=== PATIENT | male | born 1955 | race Hispanic/Latino ===

== ENCOUNTER 2022-04-08 05:38 | Day surgery (SDC) | payer MEDICARE, OTHER ==
[2022-04-06 13:49] LABS: BASOPHILS % (AUTO) 0.6 % (0.0-5.0); EOSINOPHILS % (AUTO) 2.7 % (0.0-8.0); HEMATOCRIT 43.6 % (42-54); LYMPHOCYTES % (AUTO) 40.7 % (21.0-51.0); MEAN CORPUSCULAR HEMOGLOBIN 28.8 pg (27.0-33.0); MEAN CORPUSCULAR HGB CONC 32.8 g/dL (32.0-36.0); MEAN CORPUSCULAR VOLUME 87.9 fL (79-99); PLATELET COUNT (AUTO) 251 K/uL (130-400); RED BLOOD CELL COUNT(AUTO) 4.96 MIL/uL (4.50-6.20); RED CELL DISTRIBUTION WIDTH 12.1 % (11.0-15.5); WHITE BLOOD COUNT (AUTO) 5.1 K/uL (4.8-10.8)
[2022-04-06 13:51] VITALS: BP 158/84
[2022-04-06 13:57] LABS: CREATININE 0.9 mg/dL (0.5-1.5)
[2022-04-06 13:58] LABS: INR 1.14 (0.85-1.15); PROTHROMBIN TIME 12.3 SEC (9.6-11.6)
[2022-04-06 14:00] LABS: PARTIAL THROMBOPLASTIN TIME 27.6 SEC (26.3-35.5)
[2022-04-06 14:13] LABS: B-TYPE NATRIURETIC PEPTIDE 24 pg/mL (0-100)
[2022-04-08] VITALS (10 sets, daily range): BP systolic 111–189; BP diastolic 65–87
[~2022-04-08] VITALS: Ht 175.3 cm; Wt 76.8 kg
[~2022-04-08 05:38] MED LIST: CINN500C PO; CLOP75TA32 PO; DULA1.5P SQ; EMPA1TAB7 PO; INSU100I24 SQ; LOSA25TA41 PO; MAGN250C PO; METO-408 PO; MULT-1367 PO; RIVA2.5T PO; ROSU20TA31 PO; VITAMIN B12 PO
[2022-04-08] MEDS ORDERED: 0.9%NACL 1000ML 1,000 ML IV ONE (06:16)
[2022-04-08] MEDS ORDERED: MIDAZOLAM HCL 1 MG/ML 2ML VIAL ONE ×3 (07:08→10:47)
[2022-04-08] MEDS ORDERED: FENTANYL CITRATE PF 50 MCG/1 ML 2ML VIAL ONE ×3 (07:08→10:47)
[2022-04-08] MEDS ORDERED: NICARDIPINE 25MG INJ IV ONE (07:08)
[2022-04-08] MEDS ORDERED: NITROGLYCERIN 50MG VIAL ONE (07:08)
[2022-04-08] MEDS ORDERED: IODIXANOL 320 MG/ML 100 ML VIAL ONE (07:09)
[2022-04-08] MEDS ORDERED: HEPARIN 10,000 UNIT/10ML (1,000 UNIT/ML) VIAL ONE (07:09)
[2022-04-08] MEDS ORDERED: LIDOCAINE HCL 1% MDV 50ML VIAL ONE (07:09)
[2022-04-08] MEDS ORDERED: CLOPIDOGREL 300MG TAB ONE (08:30)
[2022-04-08] MEDS ORDERED: ASPIRIN 325MG EC TAB PO ONE (08:30)
[2022-04-08] MEDS ORDERED: NOREPINEPHRINE BITARTRATE 1 MG/1 ML ML IV ONE (10:11)
[2022-04-08] MEDS ORDERED: 0.9%NACL 1000ML 1,000 ML IV SCH (11:30)
[2022-04-08] MEDS ORDERED: GLUCAGON 1MG KIT 1 MG ML IM PRN (11:30)
[2022-04-08] MEDS ORDERED: DEXTROSE 50%-WATER 50 ML DISP.SYRIN IV PRN (11:30)
== END 2022-04-08 15:55 | disposition home or self-care (01) ==
LOC: DAH 05:38 → EDSEX 13:00 → DAH 15:55
PROVIDERS: ATTEND Internal Medicine Cardiovascular Disease
DX: I70.211 Atherosclerosis of native arteries of extremities with intermittent claudication, right leg (principal); I70.92 Chronic total occlusion of artery of the extremities; E11.51 Type 2 diabetes mellitus with diabetic peripheral angiopathy without gangrene; I10 Essential (primary) hypertension; E78.5 Hyperlipidemia, unspecified; N52.1 Erectile dysfunction due to diseases classified elsewhere; Z83.3 Family history of diabetes mellitus; Z82.49 Family history of ischemic heart disease and other diseases of the circulatory system; Z79.01 Long term (current) use of anticoagulants; Z79.82 Long term (current) use of aspirin
CPT/HCPCS: 80048; 83880; 85025; 85610; 85730; 36415; 71045; 93005; 75716; 85347 ×2; 82948 ×2; C9774; C1894 ×2; C1769 ×9; C1760; C1893; C1724; C1887; C1727 ×2; C1725 ×2; J3010 ×3; J3490 ×4; J7030; J1644 ×3; J2250 ×3; Q9967; A4215; A4222; A4221; A4663; A4216; A4606; A4223 ×3; 96360; 96361; 99156; 99157

== ENCOUNTER 2023-12-22 06:29 | Day surgery (SDC) | payer MEDICARE ==
[2023-12-20 10:52] LABS: BASOPHILS # (AUTO) 0.03 K/uL (0.00-0.20); BASOPHILS % (AUTO) 0.5 % (0.0-5.0); EOSINOPHILS # (AUTO) 0.12 K/uL (0.00-0.70); HEMATOCRIT 44.8 % (42-54); IMMATURE GRANULOCYTE ABSOLUTE 0.01 K/uL (0-1); LYMPHOCYTES # (AUTO) 1.9 K/uL (1.0-4.8); LYMPHOCYTES % (AUTO) 30.7 % (21.0-51.0); MEAN CORPUSCULAR HEMOGLOBIN 29.8 pg (27.0-33.0); MEAN CORPUSCULAR HGB CONC 33.3 g/dL (32.0-36.0); MEAN CORPUSCULAR VOLUME 89.6 fL (79-99); MONOCYTES # (AUTO) 0.5 K/uL (0.1-1.0); MONOCYTES % (AUTO) 8.5 % (3.0-13.0); NEUTROPHILS # (AUTO) 3.6 K/uL (1.8-7.7); NEUTROPHILS % (AUTO) 58.1 % (40.0-77.0); PLATELET COUNT (AUTO) 275 K/uL (130-400); RED CELL DISTRIBUTION WIDTH 12.4 % (11.0-15.5); WHITE BLOOD COUNT (AUTO) 6.1 K/uL (4.8-10.8)
--- NOTE | 2023-12-20 10:55 | EKG ---
[facility] Test Date: 2023-12-20 Test Time: 11:38:48 Pat Name: ELDA NOLAN Department: [facility] Room: Gender: M Brick Catcher: [id number] : 1955 Requested By: FAISAL OLIVARES Order Number: [id number] Reading MD: Jose Miguel Crowley Measurements Intervals [place] Rate: 78 P: -21 TN: 159 QRS: 6 QRSD: 87 T: 62 QT: 352 QTc: 401 Interpretive Statements Sinus rhythm Low voltage, extremity leads Compared to ECG 04/06/2022 13:28:05 Low QRS voltage now present Electronically Signed On 12-21-2023 19:31:40 MENAGERIE SUPERINTENDENT by Jose Miguel Crowley Please click the below link to view image of tracing.
[2023-12-20 11:00] LABS: CREATININE 0.8 mg/dL (0.5-1.3); POTASSIUM 5.2 mmol/L (3.5-5.1)
[2023-12-20 11:01] LABS: INR 1.17 (0.85-1.15); PROTHROMBIN TIME 12.5 SEC (9.6-11.6)
[2023-12-20 11:03] LABS: PARTIAL THROMBOPLASTIN TIME 28.1 SEC (26.3-35.5)
[2023-12-20 11:37] VITALS: BP 132/73; PULSE 82; RESP 18; TEMP 98.1
--- NOTE | 2023-12-20 11:53 | NUR ---
report notified lisa hale np pt on xarelto 2.5mg bid. received orders to instruct pt to hold day before procedure. pt notified
[2023-12-20 12:17] LABS: B-TYPE NATRIURETIC PEPTIDE 19 pg/mL (0-100)
--- NOTE | 2023-12-20 12:24 | HMCIMG ---
CHEST 1VW REASON: PRE OP COMPARISON: 04/06/2022 FINDINGS: Single view of the chest was obtained. Lungs are clear. Heart size is normal. There is no pulmonary vascular congestion. Mediastinum and bony thorax appear unremarkable. IMPRESSION: 1. Normal single view chest x-ray.
--- NOTE | 2023-12-21 16:44 | NUR ---
REPORT REPORTED POTASSIUM LEVEL TO DONNIE ROJAS NP. RECEIVED ORDERS TO REPEAT IN AM Addendum: 12/21/23 at 1646 by OCTAVIO PURVIS RN RN IF LEVEL STILL ELEVATED THEN STOP LOSARTAN PER DONNIE ROJAS NP
[~2023-12-22] VITALS: Ht 175.3 cm; Wt 70.9 kg
[2023-12-22] VITALS (9 sets, daily range): BP systolic 112–197; BP diastolic 60–83; PULSE 62–70; RESP 14–18; TEMP 97.3–98
[~2023-12-22 06:29] MED LIST changes: +CHOL200074 PO; +DULA0.75 SQ; -DULA1.5P SQ; -INSU100I24 SQ; +INSU300I SQ; -MAGN250C PO; +MAGN400C PO; -ROSU20TA31 PO; +ROSU20TA98 PO; +ZINC220T4 PO; +novolog SQ
[2023-12-22] MEDS: 0.9%NACL 1000ML 1,000 ML IV ONE (08:02)
[2023-12-22] MEDS ORDERED: HEParin 10,000 UNIT/10ML (1,000 UNIT/ML) VIAL ONE (09:03)
[2023-12-22] MEDS ORDERED: NITROGLYCERIN 50MG VIAL ONE (09:03)
[2023-12-22] MEDS ORDERED: HEParin-NS 1,000 UNIT/500 ML 1,000 ML IV ONE (09:03)
[2023-12-22] MEDS ORDERED: IOHEXOL 350 MG/ML 100ML INFUS..BTL IV ONE (09:03)
[2023-12-22] MEDS ORDERED: LIDOCAINE HCL 400MG/20ML VIAL ONE (09:03)
[2023-12-22] MEDS ORDERED: niCARDIpine 25MG INJ IV ONE (09:03)
[2023-12-22] MEDS ORDERED: FENTanyl CITRate PF 50 MCG/1 ML 2ML VIAL ONE (09:26)
[2023-12-22] MEDS ORDERED: MIDAZOLAM HCL 1 MG/ML 2ML VIAL ONE (09:26)
[2023-12-22] MEDS ORDERED: 0.9%NACL 1000ML 1,000 ML IV SCH (11:00)
--- NOTE | 2023-12-22 11:06 | PRN ---
PROCEDURE NOTE Indications: 1. JAIN (anginal equivalent) 2. HTN 3. HLP 4. DM2 5. PAD 6. Normal Lexiscan stress test done in May 2021 7. Normal left ventricle systolic function, LVEF 60-65% by echocardiogram done on 05/25/2021 Procedures: Left heart catheterization, coronary angiogram, right common femoral angiogram Introduction: After informed written consent was obtained, the patient was brought to the Catheterization Lab in the usual fasting state. Following sterile prep and drape, a time out was performed, then moderate sedation was administered, 1mg of Versed and 50mcg of Fentanyl, then 1% Lidocaine was infiltrated into the right femoral groin. Using a Modified Seldinger technique, a 6Fr Sheath was inserted into the right common femoral artery. While under fluoroscopic guidance, diagnostic coronary catheters were advanced over a wire into the central circulation where they were aspirated, flushed and placed to pressure monitoring, once the wire was removed. Coronary Angio: The left and right coronary arteries were engaged with appropriate catheters and angiography was performed under continuous pressure monitoring. Left Heart Catheterization: A JR4 catheter was inserted into the LV and the pressure was recorded, then the catheter was removed from the LV. Cardiac Findings: Codominant system LM: Medium caliber vessel with mild luminal irregularities. The vessel bifurca corrie into the LAD and LCX. LAD: Medium caliber vessel with diffuse 80% stenosis in the ostial, proximal, and mid LAD. The rest of the vessel has mild luminal irregularities. ROEL 3 blood flow. DIAG1: Small caliber vessel with 90% stenosis in the ostial-proximal DIAG1. DIAG2: Small caliber vessel with mild luminal irregularities. LCx: Large caliber vessel with 30% stenosis in the ostial LCx, 40% stenosis in the mid LCx, and 60% stenosis in the distal LCx. ROEL 3 blood flow. OM1: Medium caliber vessel with 80% stenosis in the proximal OM1. OM2: Medium caliber vessel with mild luminal irregularities. LPLV: Medium caliber vessel with 80-90% stenosis in the proximal LPLV and 80% stenosis in the mid LPLV. RCA: Small caliber vessel with 30% stenosis in the proximal RCA and 70% stenosis in the mid RCA. ROEL 3 blood flow. RPDA: Small caliber vessel with mild luminal irregularities. LVEDP: 7 mmHg Medications given: Versed 1mg, Fentanyl 50mcg, Nitroglycerin 200mcg Coronary Intervention: None Complications: None Conscious Sedation Monitoring: Under my direct order and supervision, medication for moderate conscious sedation was administered by the nursing staff and the patients level of consciousness and physiological status was monitored by an independent trained carmine grant. Closure of Access Site: After the case completed the sheath was pulled and a 6Fr Angioseal was deployed in the right common femoral artery without complication. Conclusion: 1. 3V+branch CAD (LAD, LCx, RCA, DIAG1, OM1, LPLV) 2. JAIN (anginal equivalent) 3. HTN 4. HLP 5. DM2 6. PAD 7. False negative Lexiscan stress test done in May of 2021 8. Normal left ventricle systolic function, LVEF 60-65% by echocardiogram done on 05/25/[address]: [address] surgery for CABG evaluation (to be done as an outpatient) 2. Continue goal directed medical therapy. 3. Please start NS at 100 mL/hr x 2 hours 4. Groin precautions 5. 4 hours of bedrest 6. No driving x 48 hours 7. No strenuous activity or heavy lifting x 2 weeks 8. Okay to discharge home once bedrest is complete and the patient's right groin access site remains soft to palpation and free of significant bleeding, b ruising, or hematoma formation. 9. Please have the patient follow up with Cardiology, Dr. Demian Matthew, 1-2 weeks after discharge. DEMIAN MATTHEW MD Dec 22, 2023 11:06
--- NOTE | 2023-12-22 14:15 | NUR ---
BOTH PT AND SPOUSE GIVEN VERBAL AND WRITTEN DISCHARGE INSTRUCTIONS. THEY WERE GIVEN CD OF DIAGRAM AND H&P. TO FOLLOW UP WITH CV SX.
== END 2023-12-22 14:35 | disposition home or self-care (01) ==
LOC: DAH 06:29
PROVIDERS: ATTEND Internal Medicine Cardiovascular Disease
DX: R06.09 Other forms of dyspnea (principal); I25.118 Atherosclerotic heart disease of native coronary artery with other forms of angina pectoris; R93.1 Abnormal findings on diagnostic imaging of heart and coronary circulation; N52.1 Erectile dysfunction due to diseases classified elsewhere; R60.0 Localized edema; I10 Essential (primary) hypertension; E11.51 Type 2 diabetes mellitus with diabetic peripheral angiopathy without gangrene; E78.5 Hyperlipidemia, unspecified; N25.1 Nephrogenic diabetes insipidus; Z82.49 Family history of ischemic heart disease and other diseases of the circulatory system; Z83.3 Family history of diabetes mellitus; Z79.01 Long term (current) use of anticoagulants; Z79.4 Long term (current) use of insulin; Z79.899 Other long term (current) drug therapy
CPT/HCPCS: 80048; 83880; 85025; 85610; 85730; 36415 ×2; 71045; 93005; 93458; 84132; 82948; C1894 ×2; C1760; J3010; J3490 ×2; J7030; J2250; J1644; Q9967; A4215; A4222; A4221; A4663; A4216; A4606; Q9965 ×2; A4223 ×3; 96360; 96361; 99156; 99157

== ENCOUNTER 2024-04-29 05:32 | Day surgery (SDC) | payer MEDICARE ==
[2024-04-25 10:00] VITALS: BP 121/68; PULSE 73; RESP 18; TEMP 97.2
[2024-04-25 10:10] LABS: INR 1.18 (0.85-1.15); PROTHROMBIN TIME 12.3 SEC (9.6-11.6)
[2024-04-29] VITALS (8 sets, daily range): BP systolic 131–150; BP diastolic 64–75; PULSE 57–78; RESP 14–15; TEMP 97.2
[~2024-04-29] VITALS: Ht 175.3 cm; Wt 68.7 kg
[~2024-04-29 05:32] MED LIST changes: +ASPI-1443 PO; +CHOL2000 PO; -CHOL200074 PO; -CLOP75TA32 PO; +ESCI-8 PO; +FERS325 PO; +INSU100I3 SQ; -MAGN400C PO; +METO-391 PO; -METO-408 PO; +MULT-1289 PO; -MULT-1367 PO; -VITAMIN B12 PO; -novolog SQ
[2024-04-29] MEDS: 0.9%NACL 1000ML 1,000 ML IV SCH (06:54)
[2024-04-29] MEDS ORDERED: LIDOCAINE HCL 400MG/20ML VIAL ONE (07:16)
[2024-04-29] MEDS ORDERED: IODIXANOL 320 MG/ML 100 ML VIAL ONE (07:17)
[2024-04-29] MEDS ORDERED: HEParin 10,000 UNIT/10ML (1,000 UNIT/ML) VIAL ONE (07:17)
[2024-04-29] MEDS ORDERED: NITROGLYCERIN 50MG VIAL ONE (07:17)
[2024-04-29] MEDS ORDERED: HEParin-NS 1,000 UNIT/500 ML 1,000 ML IV ONE (07:17)
[2024-04-29] MEDS ORDERED: FENTanyl CITRate PF 50 MCG/1 ML 2ML VIAL ONE (07:34)
[2024-04-29] MEDS ORDERED: MIDAZOLAM HCL 1 MG/ML 2ML VIAL ONE ×2 (07:34→09:10)
[2024-04-29] MEDS ORDERED: niCARDIpine 25MG INJ IV ONE (07:43)
[2024-04-29] MEDS ORDERED: cloPIDOgrel 300MG TAB ONE (08:33)
[2024-04-29] MEDS ORDERED: HEParin-NS 1,000 UNIT/500 ML 500 ML IV ONE (09:00)
[2024-04-29] MEDS ORDERED: DEXTROSE 50%-WATER 50 ML DISP.SYRIN IV PRN (10:30)
[2024-04-29] MEDS ORDERED: 0.9%NACL 1000ML 1,000 ML IV SCH (10:30)
[2024-04-29] MEDS ORDERED: GLUCAGON 1MG KIT 1 MG ML IM PRN (10:30)
--- NOTE | 2024-04-29 10:47 | PRN ---
Procedure:Peripheral Angiogram Procedure Note Procedure Note: Peripheral Angiogram Date/Time of Service: 04/29/2024 Referring Physician: Dr. Matthew Procedures Performed: Lower abdominal aortogram, peripheral angiogram with lower extremity arterial runoff, balloon angioplasty of the right dorsalis pedis artery, balloon angioplasty, and balloon lithotripsy of the right anterior tibial artery Indications for Procedure: PAD, [place] category five symptoms (right lower extremity) Nonhealing ulcer on the 1st digit of the right foot PAD s/p peripheral intervention of the right anterior tibial artery done in 2022 CAD s/p CABG Description of Procedure: [After informed consent was obtained the patient was prepped and draped in the usual sterile fashion a 6 [place]i arterial sheath with a hemostatic valve was inserted into the left common femoral artery using a modified Salinger technique on the first pass front wall puncture. A 5 [place]i Omni Flush catheter was then advanced over a soft angled Glidewire into the abdominal aorta and a abdominal aortogram with runoff was obtained. The findings are listed below. The Omni flush catheter was then advanced to the right common femoral artery and a right lower extremity arterial runoff was obtained. The findings are listed below.] Findings: Lower Abdominal aorta: patent Right common iliac artery: patent Right external iliac artery: patent Right internal iliac artery: patent Right common femoral artery: patent Right profunda artery: patent Right superficial femoral artery: patent Right popliteal artery: patent Right anterior tibial artery: Diffuse 70% stenosis in the proximal segment of the artery. 100% stenosis (GRAPPLE YARDER OPERATOR = 150mm) in the mid segments of the artery. The artery reconstitutes distally via collateral blood flow Right tibioperoneal artery: patent Right peroneal artery: patent Right posterior tibial artery: 100% stenosis (GRAPPLE YARDER OPERATOR > 240mm) in the proximal segment of the artery. The artery does not reconstitute distally Right dorsalis pedis artery: 100% stenosis in the mid segment of the artery. Right pedal arch: Incomplete, with slow single-vessel runoff supplying the anterior segment of the pedal arch. Left common iliac artery: patent Left external iliac artery: patent Left internal iliac artery: patent Left common femoral artery: patent Left profunda artery: patent Intervention: After reviewing the above-mentioned findings the decision was made to intervene on the right anterior tibial artery in the right dorsalis pedis artery. The soft angled glidewire was inserted into the Omni flush catheter was advanced in the right popliteal artery. The Omni flush catheter was then removed. The short 6 [place] arterial sheath was then exchanged for a 65 cm 6 [place]i destination arterial sheath, which was then placed in the mid right superficial femoral artery. We then administered heparin 75 units/kg x1 dose and clopidogrel 600 mg x 1 dose. We then advanced a 0.014 whisper guidewire and 0.014 cross catheter across the area stenosis and into the distal right anterior tibial artery. We then proceeded with a wire escalation technique which included a 0.014 Fielder XT, 0.014 miracle 6, 0.014 Confianza pro and 0.014 Astato 20gm. Using the last wire were able to cross the GRAPPLE YARDER OPERATOR in the right dorsalis pedis artery. The wire and quick cross catheter were then advanced anterior segment of the pedal arch. We then removed the wire injected contrast into the 0.014 quick cross catheter to ensure that we are in the true lumen. Once this was confirmed we inserted a 0.014 run-through guidewire into the quick cross catheter and advanced it into the distal segment of the pedal arch. We then removed the quick cross catheter and performed balloon angioplasty (1.5-2.0 x 210mm > 2.0 x 40mm) in the right dorsalis pedis artery and balloon angioplasty (1.0-2.0 x 210mm) and balloon lithotripsy (shockwave 3.0 x 80mm) in the proximal, mid, and distal right anterior tibial artery. The balloons were then removed and repeat angiography was performed, which revealed a widely patent right anterior tibial artery and right dorsalis pedis artery, without dissection, perforation, and brisk two-vessel runoff supplying the right foot/pedal arch. The 0.014 runthrough guidewire and 65 cm 6 [place]i arterial sheath were then removed and the arteriotomy site in the left common femoral artery was successfully closed using a six [place] Angio-Seal device. The patient tolerated the procedure well and without issue. Estimated Blood Loss: [40]mL Complications: [ None] Conclusion: 1. PAD, [place] category 5 symptoms (right lower extremity), 100% stenosis in the mid right anterior tibial artery status post successful treatment with balloon angioplasty and balloon lithotripsy and 100% stenosis in the right dorsalis pedis artery status post successful treatment with balloon angioplasty, resulting in widely patent arteries, without dissection, perforation, and brisk two-vessel runoff supplying the right foot/pedal arch. 2. Residual PAD, 100% stenosis in the proximal right posterior tibial artery, [place] does not reconstitute distally this is not amenable to percutaneous intervention. 3. Nonhealing ulcer in the 1st digit of the right foot 4. CAD s/p CABG Recommendations/Instructions: 1. Goal-directed medical therapy. 2. Continue aspirin 81 mg daily and xarelto 2.5 mg BID 3. Groin precautions 4. 4 hours of bedrest after the arterial sheaths are pulled 5. Start NS at 100 mL/hour x2 hours. 6. Okay to DC, once bed rest is complete, and the left groin is soft, free of bruising, bleeding, and or hematoma formation. 7. No driving for the next 48 hours. 8. No heavy lifting or strenuous exercise for the next two weeks. 9. Please have the patient follow up with Dr. Matthew in 1-2 weeks. 10. Continue with aggressive wound care FAISAL MATTHEW MD Apr 29, 2024 10:47
== END 2024-04-29 14:05 | disposition home or self-care (01) ==
LOC: DAH 05:32
PROVIDERS: ATTEND Internal Medicine Cardiovascular Disease
DX: E11.51 Type 2 diabetes mellitus with diabetic peripheral angiopathy without gangrene (principal); I70.211 Atherosclerosis of native arteries of extremities with intermittent claudication, right leg; E11.621 Type 2 diabetes mellitus with foot ulcer; L97.519 Non-pressure chronic ulcer of other part of right foot with unspecified severity; I70.92 Chronic total occlusion of artery of the extremities; I25.10 Atherosclerotic heart disease of native coronary artery without angina pectoris; R06.09 Other forms of dyspnea; R93.1 Abnormal findings on diagnostic imaging of heart and coronary circulation; N52.1 Erectile dysfunction due to diseases classified elsewhere; R60.0 Localized edema; F41.9 Anxiety disorder, unspecified; I10 Essential (primary) hypertension; E78.00 Pure hypercholesterolemia, unspecified; E66.9 Obesity, unspecified; Z68.21 Body mass index [BMI] 21.0-21.9, adult; Z83.3 Family history of diabetes mellitus; Z82.49 Family history of ischemic heart disease and other diseases of the circulatory system; Z79.01 Long term (current) use of anticoagulants; Z79.899 Other long term (current) drug therapy; Z98.890 Other specified postprocedural states; Z95.1 Presence of aortocoronary bypass graft; Z79.82 Long term (current) use of aspirin
CPT/HCPCS: 83880; 85610; 85730; 36415; 75630; 85347 ×2; 82948; C9772; C1887 ×2; C1725 ×5; C1894 ×2; C1769 ×7; C1760; C1893; J3010; J3490 ×3; J7030; J1644 ×3; J2250 ×2; Q9967; A4215; A4222; A4221; A4663; A4216; A4606; A4223 ×3; 75716; 96360; 96361; 99156; 99157; C1761

== ENCOUNTER 2024-10-04 06:27 | Day surgery (SDC) | payer MEDICARE ==
[2024-10-02 11:15] LABS: IMMATURE GRANULOCYTE ABSOLUTE 0.03 K/uL (0-1); NUCLEATED RED BLOOD CELLS 0.0 % (0.0-0.19); PLATELET COUNT (AUTO) 428 K/uL (130-400); RED BLOOD CELL COUNT(AUTO) 4.95 MIL/uL (4.50-6.20); RED CELL DISTRIBUTION WIDTH 12.6 % (11.0-15.5); WHITE BLOOD COUNT (AUTO) 9.6 K/uL (4.8-10.8)
[2024-10-02 11:21] VITALS: BP 122/74; PULSE 99; RESP 13; TEMP 97.7
[2024-10-02 11:27] LABS: CREATININE 1.0 mg/dL (0.5-1.3); GLOMERULAR FILTR. RATE CALC 81.0 mL/min (>90); GLUCOSE,RANDOM 115.0 mg/dL (70-105); INR 1.19 (0.85-1.15); SODIUM SERUM 139.0 mmol/L (136-145); UREA NITROGEN, BLOOD 26.0 mg/dL (7-18)
[2024-10-02 11:30] LABS: APPEARANCE,URINE CLEAR (CLEAR); GLUCOSE, URINE (UA) >=1000 mg/dL (NEGATIVE); LEUKOCYTE ESTERASE ,URINE NEGATIVE Leu/uL (NEGATIVE); NITRATE,URINE NEGATIVE (NEGATIVE); OCCULT BLOOD,URINE NEGATIVE (NEGATIVE)
[2024-10-02 11:50] LABS: ADD UA MICROSCOPIC YES
[2024-10-02 11:55] LABS: SQUAMOUS EPITHELIAL CELL,UR RARE /HPF (0-2)
--- NOTE | 2024-10-02 12:12 | EKG ---
[facility] Test Date: 2024-10-02 Test Time: 11:00:55 Pat Name: ELDA NOLAN Department: [facility] Room: Gender: Mergers And Acquisitions Manager: [id number] : 1955 Requested By: FAISAL OLIVARES Order Number: [id number] Reading MD: Jorge Brown Measurements Intervals [place] Rate: 100 P: 58 TX: 162 QRS: 1 QRSD: 85 T: 92 QT: 319 QTc: 412 Interpretive Statements Sinus tachycardia Nonspecific T abnormalities, lateral leads Compared to ECG 12/20/2023 11:38:48 T-wave abnormality now present Sinus rhythm no longer present Electronically Signed On 10-03-2024 05:15:33 CDT by Jorge Brown Please click the below link to view image of tracing.
--- NOTE | 2024-10-02 12:55 | NUR ---
verified. called lisa hale bag hanger and asked when does pt need to stop taking xarelto. as per lisa pt to hold 1 day before. pt and spouse notified.
--- NOTE | 2024-10-02 18:01 | HMCIMG ---
EXAM: XR Chest, 1 View(s). CLINICAL HISTORY: COMPARISON: None provided. FINDINGS: LUNGS: The lungs are clear. No consolidation. Negative findings. PLEURAL SPACES: No pleural effusion or pneumothorax. HEART: The heart size is normal. BONES: No acute osseous abnormality. IMPRESSION: 1. No acute findings. /[place]
[2024-10-04] VITALS (9 sets, daily range): BP systolic 117–160; BP diastolic 65–83; PULSE 73–85; RESP 13–18; TEMP 97–97.6
[~2024-10-04] VITALS: Ht 175.3 cm; Wt 73.0 kg
[~2024-10-04 06:27] MED LIST changes: +AMOX1TAB16 PO; +BRIM5DRO OD; +CARB-283 OU; -ESCI-8 PO; -FERS325 PO; -ZINC220T4 PO
[2024-10-04] MEDS: 0.9%NACL 1000ML 1,000 ML IV SCH (06:54)
[2024-10-04] MEDS ORDERED: IODIXANOL 320 MG/ML 100 ML VIAL ONE (08:29)
[2024-10-04] MEDS ORDERED: LIDOCAINE HCL 400MG/20ML VIAL ONE (08:29)
[2024-10-04] MEDS ORDERED: HEParin-NS 1,000 UNIT/500 ML 1,000 ML IV ONE (08:30)
[2024-10-04] MEDS ORDERED: NITROGLYCERIN 50MG VIAL ONE (08:30)
--- NOTE | 2024-10-04 09:43 | NUR ---
Full and complete discharge instructions given to Patient and Family both verbally and in writing. Explained Surgical procedure precautions and follow up. Right Knee incision site clean dry and intact. No evidence of bleeding, bruising or hematoma. Brad wrap clean and dry. PT completed crutch training. All questions answered. PIV removed with catheter tip intact. at bedside appearing supportive. W/C to POV with to home Addendum: 10/04/24 at 1117 by RADHA RAMAN RN RN Wrong Patient Error Addendum: 10/04/24 at 1711 by SAI GONZALES RN RN this note does not belong to this pt was charted on wrong by nurse
[2024-10-04] MEDS ORDERED: MIDAZOLAM HCL 1 MG/ML 2ML VIAL ONE ×2 (11:07→11:53)
[2024-10-04] MEDS ORDERED: HEParin-NS 1,000 UNIT/500 ML 500 ML IV ONE (11:56)
[2024-10-04] MEDS ORDERED: IOHEXOL-350 50ML VIAL IV ONE (13:40)
[2024-10-04] MEDS ORDERED: ASPIRIN 325MG EC TAB PO ONE (13:40)
[2024-10-04] MEDS ORDERED: 0.9%NACL 1000ML 1,000 ML IV SCH (14:00)
--- NOTE | 2024-10-04 14:54 | PRN ---
Procedure:Peripheral Angiogram Procedure Note Procedure Note: Peripheral Angiogram Date/Time of Service: 10/04/2024 Referring Physician: Dr. Matthew Procedures Performed: Lower abdominal aortogram, peripheral angiogram with bilateral lower extremity arterial runoff, balloon angioplasty, balloon lithotripsy, and LELA placement in the ostial right anterior tibial artery, balloon angioplasty and balloon lithotripsy of the right dorsalis pedis artery Indications for Procedure: PAD, [place] category five symptoms (right lower extremity) Non-healing ulcer affecting the 1st digit of the right foot PAD, status post multiple interventions of the right anterior tibial artery PAD, status post multiple interventions of the left lower extremity DM II CAD s/p CABG Description of Procedure: [After informed consent was obtained the patient was prepped and draped in the usual sterile fashion a 6 Czech arterial sheath with a hemostatic valve was inserted into the left common femoral artery using a modified Salinger technique on the first pass front wall puncture. A 5 Czech Omni Flush catheter was then advanced over a soft angled Glidewire into the abdominal aorta and a lower abdominal aortogram with runoff was obtained. The findings are listed below. The Omni flush catheter was then advanced in the right common femoral artery and right lower extremity arteriogram was obtained. The findings are listed below. The omni flush catheter was then removed and a left lower extremity arteriogram was obtained via the six Czech sheath in the left common femoral artery. The findings are listed below.] Findings: Lower Abdominal aorta: patent Right common iliac artery: patent Right external iliac artery: patent Right internal iliac artery: 70% stenosis in the mid segment of the artery Right common femoral artery: patent Right profunda artery: patent Right superficial femoral artery: patent with 20% stenosis in the distal segment of the artery Right popliteal artery: patent Right anterior tibial artery: 80% stenosis in the ostial segment of the artery Right tibioperoneal artery: patent Right peroneal artery: patent Right posterior tibial artery: 100% stenosis (CHRISTMAS TREE FARM MANAGER > 240mm) in the proximal segment of the artery. The artery does not reconstitute distally Right dorsalis pedis artery: 100% stenosis in the proximal segment of the artery Right pedal arch: Incomplete, with slow two-vessel runoff runoff supplying the anterior and posterior segments of the right pedal arch Left common iliac artery: patent Left external iliac artery: patent Left internal iliac artery: patent Left common femoral artery: patent Left profunda artery: patent Left superficial femoral artery: 60% stenosis in the proximal segment of the artery Left popliteal artery: 50% stenosis in the mid segment of the artery Left anterior tibial artery: 100% stenosis (CHRISTMAS TREE FARM MANAGER) in the proximal segment of the artery. The artery reconstitutes distally via collateral blood flow Left tibioperoneal artery: patent Left peroneal artery: patent Left posterior tibial artery: Diffuse 90-95% stenosis in the proximal, mid, and distal segments of the artery Left pedal arch: Incomplete, with slow single-vessel runoff supplying the anterior and posterior segments of the left pedal arch Intervention: After reviewing the above-mentioned findings the decision was made to intervene on the right anterior tibial artery and right dorsalis pedis artery. The soft angled glidewire was inserted into the Omni flush catheter and was advanced to the right popliteal artery. The Omni flush catheter was then removed and the short six Czech arterial sheath was exchanged for a 65 cm six Czech destination arterial sheath, which was then placed in the mid right superficial femoral artery. We then administered heparin 75 units/kg x1 dose and clopidogrel 600 mg x 1 dose and aspirin 325 mg x 1 dose. We then advanced a 0.014 whisper guidewire and 0.014 quick cross catheter and attempted to cross the stenosis in the ostial right anterior tibial artery, but despite multiple attempts were unsuccessful. We then escalated to a 0.014 Fielder XT guidewire and were able to cross the stenosis in the ostial right anterior tibial artery. We then advanced the Fielder XT guidewire and 0.014 quick cross catheter down into the distal right dorsalis pedis artery. We then removed the guidewire and injected contrast into the quick cross catheter, to ensure there were in the true lumen of the right dorsalis pedis artery. Once this was confirmed we advanced a Viper wire into the quick cross catheter in place in the distal right dorsalis pedis artery. We then removed the quick cross catheter and performed balloon angioplasty (1.25 x 20 mm > 2.0 x 20 mm > 2.0 x 40 mm) and balloon lithotripsy (shockwave 2.5 x 80 mm) in the right dorsalis pedis artery. We then performed balloon angioplasty (2.0 x 20 mm > 2.0 x 40 mm), balloon lithotripsy (shockwave 2.5 x 80 mm) and LELA placement (Esprit 3.5 x 38 mm) in the ostial right anterior tibial artery. The balloons were then removed and repeat angiography was performed which revealed a widely patent stent in the ostial and proximal right anterior tibial artery, widely patent mid and distal right anterior tibial artery, widely patent right dorsalis pedis artery and brisk two- vessel runoff supplying the anterior and posterior segments of the right pedal arch. The ViperWire and 65 cm six Czech destination arterial sheath were then removed and the arteriotomy site in the left common femoral artery was successfully closed using a six Czech Angio-Seal device. The patient tolerated the procedure well and without issue. Estimated Blood Loss: 40]mL Complications: [ None] Conclusion: 1. PAD, [place] category five symptoms (right lower extremity), 80% stenosis in the ostial right anterior tibial artery status post successful treatment with balloon angioplasty, balloon lithotripsy, and LELA placement (Esprit 3.5 x 38 mm), 100% stenosis in the right dorsalis pedis artery status post successful treatment with balloon angioplasty and balloon lithotripsy, resulting in widely patent arteries, without dissection, perforation, and brisk two-vessel runoff supplying the anterior and posterior segments of the right pedal arch. 2. Residual PAD, 100% stenosis in the proximal right posterior tibial artery. The artery does not reconstitute distally 3. Residual PAD affecting the left SFA, left anterior tibial artery, and left posterior tibial artery 4. DM II 5. CAD s/p CABG Recommendations/Instructions: 1. Continue Goal-directed medical therapy. 2. Stop Xarelto. Start clopidogrel 75 mg daily. Continue aspirin 81 mg daily. The patient will remain on DAPT for a minimum of one year. 3. Groin precautions 4. 4 hours of bedrest 5. Start NS at 100 mL/hour x3 hours. 6. Okay to DC once bedrest is complete in the left groin is soft, and free of bruising, bleeding, and or hematoma formation. 7. No driving for the next 48 hours. 8. No heavy lifting or strenuous exercise with the next two weeks. 9. Please have the patient follow up with Dr. Matthew in 1-2 weeks. FAISAL MATTHEW MD Oct 04, 2024 14:54
--- NOTE | 2024-10-04 17:00 | NUR ---
right foot great toe wound dressing changed per pts request felt wet toe noted with dark skin clear drainage slight foul smell are cleaned with ns pat dry and recovered with 4x4 and secured with tape tolerated well per she would do her regular wound care when she got home
== END 2024-10-04 17:11 | disposition home or self-care (01) ==
LOC: DAH 06:27
PROVIDERS: ATTEND Internal Medicine Cardiovascular Disease
DX: E11.51 Type 2 diabetes mellitus with diabetic peripheral angiopathy without gangrene (principal); I70.203 Unspecified atherosclerosis of native arteries of extremities, bilateral legs; L97.519 Non-pressure chronic ulcer of other part of right foot with unspecified severity; I70.92 Chronic total occlusion of artery of the extremities; I10 Essential (primary) hypertension; E78.5 Hyperlipidemia, unspecified; I25.10 Atherosclerotic heart disease of native coronary artery without angina pectoris; R06.09 Other forms of dyspnea; R93.1 Abnormal findings on diagnostic imaging of heart and coronary circulation; N52.1 Erectile dysfunction due to diseases classified elsewhere; R60.0 Localized edema; Z95.1 Presence of aortocoronary bypass graft; F41.9 Anxiety disorder, unspecified; Z79.01 Long term (current) use of anticoagulants; Z79.82 Long term (current) use of aspirin; Z79.899 Other long term (current) drug therapy
CPT/HCPCS: 80048; 83880; 85025; 85610; 85730; 81001; 36415; 71045; 93005; 75625; 75716; 99156; 99157 ×5; 85347 ×2; 82948; C9773; C1887 ×2; C1725 ×4; C1874; C1894 ×2; C1769 ×6; C1760; C1893; J3010 ×2; J3490 ×3; J1644 ×4; J2250 ×2; Q9967 ×2; A4215; A4222; A4221; A4663; A4216; A4606; A4223 ×3